=== PATIENT | female | born 1980 | race Caucasian/White ===

== ENCOUNTER 2017-06-12 09:43 | Observation (INO) | payer OTHER ==
[2017-06-12 09:43] VITALS: BMI 32.4
[2017-06-12 10:26] VITALS: RESP 18
--- NOTE | 2017-06-12 10:43 | C.PDOC ---
History Of Present Illness 37 y/o female with PSHx presents to ED with complaints of worsening RUQ and Epigastric pain for 1 month. As per patient symptoms are associated with eating, craming and burning. Patient also reports nausea and vomiting but denies fever. No other complaints at this time. WORSENING RUQ/EPIG PAIN X 1 MO. ASSOC W EATING. CRAMPING, BURNING. +NV. NO FEVER. PSH CSECT EXAM MILD DIST NONTOXIC HEENT ANICTERIC MMM ABD +RUQ>EPIG TEND MOD SOFT NO R/G REMAINDER NEG Time Seen by Provider: 06/12/17 10:28 Chief Complaint (Nursing): Abdominal Pain History Per: Patient History/Exam Limitations: no limitations Onset/Duration Of Symptoms: Days Current Symptoms Are (Timing): Still Present Location Of Pain/Discomfort: RUQ, Epigastric Past Medical History Reviewed: Historical Data, Nursing Documentation, Vital Signs Vital Signs: Last Vital Signs Temp 98.2 F 06/12/17 10:22 Pulse 86 06/12/17 10:22 Resp 18 06/12/17 10:22 BP 114/73 06/12/17 10:22 Pulse Ox 99 06/12/17 13:55 - Medical History PMH: Hypothyroidism Surgical History: No Surg Hx Family History: States: No Known Family Hx - Social History Hx Tobacco Use: No Hx Alcohol Use: No Hx Substance Use: No - Immunization History Hx Tetanus Toxoid Vaccination: No Hx Influenza Vaccination: Yes Hx Pneumococcal Vaccination: No Review Of Systems Except As Marked, All Systems Reviewed And Found Negative. Constitutional: Negative for: Fever, Chills Gastrointestinal: Positive for: Nausea, Vomiting, Abdominal Pain. Negative for : Diarrhea, Hematochezia Musculoskeletal: Negative for: Back Pain Skin: Negative for: Rash Physical Exam - Physical Exam Appears: Non-toxic, Other (mild distress) Skin: Normal Color, Warm, Dry, No Rash Head: Atraumatic, Normacephalic Eye(s): bilateral: Other (Anicteric ) Oral Mucosa: Moist Neck: Normal ROM, Supple Chest: Symmetrical Cardiovascular: Rhythm Regular, No Murmur Respiratory: Normal Breath Sounds, No Rales, No Rhonchi, No Wheezing Gastrointestinal/Abdominal: Soft, Tenderness (Moderate RUQ>Epigastric), No Guarding, No Rebound Back: No CVA Tenderness, No Paraspinal Tenderness Extremity: Normal ROM, Capillary Refill (<2 seconds) Neurological/Psych: Oriented x3 ED Course And Treatment - Laboratory Results Result Diagrams: 06/12/17 11:11 06/12/17 11:11 Urine POC: Negative O2 Sat by Pulse Oximetry: 99 (RA) Pulse Ox Interpretation: Normal Progress - Data Reviewed Data Reviewed: Lab, Diagnostic imaging, Old records ED OBSERVATION Discharge: Yes Date of observation admission: 06/12/17 Time of observation admission: 10:30 - Observation admission statement Patient is being placed in observation because:: ABD PAIN, NV - Goals of Observation Goals of observation are:: NEG ACUTE ABD - Progress Note Progress Note: 06/12/17 12:16 NEG ABD US 06/12/17 13:55 co recur pain. pending ct 06/12/17 15:03 CT NO ACUTE FINDINGS. ABD SOFT NT ND NO R/G ADVISED NEED FOR GI /PMD FU. Disposition Counseled Patient/Family Regarding: Studies Performed, Diagnosis, Need For Followup, Rx Given - Disposition Disposition: HOME/ ROUTINE Disposition Time: 15:03 Condition: IMPROVED - Clinical Impression Clinical Impression: Colicky RUQ abdominal pain - Scribe Statement The provider has reviewed the documentation as recorded by the Jeremieibjade Monteiro All medical record entries made by the Jeremieibjade were at my direction and personally dictated by me. I have reviewed the chart and agree that the record accurately reflects my personal performance of the history, physical exam, medical decision making, and the department course for this patient. I have also personally directed, reviewed, and agree with the discharge instructions and disposition.
[2017-06-12] MEDS ORDERED: Sodium Chloride 0.9% 1,000 ML IV ONE (10:46)
[2017-06-12] MEDS ORDERED: Sodium Chloride 0.9% 1,000 ML ONE (10:58)
[2017-06-12 11:16] LABS: BASO # 0.1 K/uL (0.0-0.2); BASO % 0.5 % (0.0-2.0); EOS # 0.3 K/uL (0.0-0.7); EOS % 2.7 % (0.0-4.0); HEMATOCRIT 36.3 % (34.0-47.0); LYMPH # 2.3 K/uL (1.0-4.3); LYMPH % 19.3 % (20.0-40.0); MEAN CELL VOLUME 77.2 fL (81.0-99.0); MEAN CORPUSCULAR HGB CONC 32.4 g/dL (33.0-37.0); MEAN PLATELET VOLUME 8.1 fL (7.2-11.7); MONO # 0.6 K/uL (0.0-0.8); MONO % 4.9 % (0.0-10.0); NRBC % 0.1 % (0.0-2.0); RED CELL DISTRIBUTION WIDTH 15.4 % (11.5-14.5); WHITE BLOOD COUNT 11.7 K/uL (4.8-10.8)
[2017-06-12 11:24] LABS: CHLORIDE 102 mmol/L (98-107); SODIUM 139 mmol/L (132-148)
[2017-06-12 11:25] LABS: POTASSIUM 4.1 mmol/L (3.6-5.2)
[2017-06-12 11:27] LABS: ALB/GLOB RATIO 1.2 (1.0-2.1); ALKALINE PHOSPHATASE 64 U/L (38-126); ALT/SGPT 38 U/L (9-52); AST/SGOT 20 U/L (14-36); BILIRUBIN,TOTAL 0.6 mg/dL (0.2-1.3); BLOOD UREA NITROGEN 18 mg/dL (7-17); CARBON DIOXIDE 27 mmol/L (22-30); GFR AFRICAN-AMERICAN > 60; GLUCOSE,RANDOM 106 mg/dL (65-105); TOTAL PROTEIN 7.3 g/dL (6.3-8.3)
[2017-06-12 11:28] LABS: RBC URINE 153 /hpf (0-3); URINE BACTERIA RARE (<OCC); URINE BILIRUBIN NEGATIVE (NEGATIVE); URINE BLOOD 3+ (NEGATIVE); URINE COLOR Yellow (YELLOW); URINE GLUCOSE (UA) NORMAL (Normal); URINE KETONE NEGATIVE (NEGATIVE); URINE LEUKOCYTE ESTERASE NEG Leu/uL (Negative); URINE PROTEIN NEGATIVE (NEGATIVE); URINE UROBILINOGEN NORMAL mg/dL (0.2-1.0); WBC URINE 2 /hpf (0-5)
[2017-06-12 11:28] LABS: CALCIUM 8.5 mg/dl (8.6-10.4)
--- NOTE | 2017-06-12 12:11 | US ---
HISTORY: abd pain RUQ RO ACUTE DOMINIK COMPARISON: Abdominal ultrasound performed 09/25/14 TECHNIQUE: Sonographic evaluation of the right upper quadrant of the abdomen. FINDINGS: LIVER: Measures 15.9 cm in length. Echogenic liver may be seen in setting of hepatic parenchymal disease or fatty infiltration. No focal hepatic mass identified. Main portal vein appears patent with normal directional flow. No intrahepatic bile duct dilatation. GALLBLADDER: No gallstones. No gallbladder wall thickening or pericholecystic edema. Negative sonographic Miranda's sign as assessed by the sales correspondent. COMMON BILE DUCT: Measures 3 mm. PANCREAS: Not well-visualized. RIGHT KIDNEY: Measures 11.7 x 4.9 x 4.3 cm. No obstructing calculus or hydronephrosis identified. AORTA: Limited visualization appears grossly unremarkable. IVC: Limited visualization appears grossly unremarkable. OTHER FINDINGS: None . IMPRESSION: Echogenic liver may be seen in setting of hepatic parenchymal disease or fatty infiltration.
[2017-06-12] MEDS ORDERED: Iodixanol 320 MG/ML 100 ML BOTTLE IV ONE (13:55)
--- NOTE | 2017-06-12 14:59 | CT ---
PROCEDURE: CT Abdomen and Pelvis with contrast HISTORY: RUQ ABD PAIN, NV COMPARISON: Comparison is made to the previous ultrasound dated 09/25/2014 TECHNIQUE: Contrast dose: 100 mL Visipaque 320. Axial and reformatted coronal and sagittal CT images of the abdomen and pelvis were obtained after IV contrast administration. Radiation dose: Total exam DLP = 676.12 mGy-cm. This CT exam was performed using one or more of the following dose reduction techniques: Automated exposure control, adjustment of the mA and/or kV according to patient size, and/or use of iterative reconstruction technique. FINDINGS: LOWER THORAX: No evidence of acute pathology at the lung bases. LIVER: No evidence of acute pathology or suspicious mass in the liver. The portal vein is patent. GALLBLADDER AND BILE DUCTS: Mild gallbladder wall thickening is noted. No CT evidence of acute cholecystitis. No evidence of biliary obstruction. PANCREAS: Unremarkable. No gross lesion or ductal dilatation. SPLEEN: Unremarkable. ADRENALS: Unremarkable. No mass. KIDNEYS AND URETERS: Unremarkable. No hydronephrosis. No solid mass. VASCULATURE: Unremarkable. No aortic aneurysm. BOWEL: Unremarkable. No obstruction. No gross mural thickening. APPENDIX: There is no evidence of appendicitis. PERITONEUM: Unremarkable. No free fluid. No free air. LYMPH NODES: Unremarkable. No enlarged lymph nodes. BLADDER: The bladder is not distended. The possibility of bladder wall thickening is not totally excluded. REPRODUCTIVE: The uterus is heterogeneous mildly enlarged. BONES: No acute fracture. OTHER FINDINGS: None. IMPRESSION: Mild gallbladder wall thickening. No CT evidence of acute cholecystitis. No evidence of biliary obstruction. No evidence of appendicitis.
[2017-06-12 15:19] VITALS: BP 99/61; PULSE 74; TEMP 98; O2SAT 100
== END 2017-06-12 15:04 | disposition home or self-care (01) ==
LOC: C.ER 09:43 → C.9OBSV 10:30
PROVIDERS: ADMIT Emergency Medicine; ATTEND Emergency Medicine
DX: R10.11 Right upper quadrant pain (principal); E03.9 Hypothyroidism, unspecified
CPT/HCPCS: 74177; 76705; 80053; 81001; 83690; 85025; 96361; 96374; 96375; 96376; 99284; C9113; G0378; J2270; J2405; J7040; Q9967

== ENCOUNTER 2018-03-22 09:35 | Emergency (ER) | payer MEDICAID, OTHER ==
[2018-03-22 09:35] VITALS: BMI 32.4
[2018-03-22 09:45] VITALS: O2SAT 100
[2018-03-22] MEDS ORDERED: Sodium Chloride 0.9% 1,000 ML IV ONE (10:03)
--- NOTE | 2018-03-22 10:10 | C.PDOC ---
History Of Present Illness 38 yo female w/o significant PMHx come in for evaluation of diffuse lower abdominal discomfort for past 3 weeks. Pt reports, " discomfort comes and goes, worse for past 2 days radiating to back". Otherwise, pt denies fever, chills, recent illness, sore throat, neck pain, CP, SOB, dyspnea, diaphoresis, palpitation, N/V/D, UTI sx, vaginal irritation or discharges. LNMP 02/06/18 .Ambulate to ED for evaluation, not in any apparent distress. Time Seen by Provider: 03/22/18 09:48 Chief Complaint (Nursing): Abdominal Pain History Per: Patient Past Medical History Reviewed: Historical Data, Nursing Documentation, Vital Signs Vital Signs: Last Vital Signs Temp 98 F 03/22/18 09:42 Pulse 80 03/22/18 09:42 Resp 18 03/22/18 09:42 BP 128/85 03/22/18 09:42 Pulse Ox 100 03/22/18 11:48 - Medical History PMH: Hypothyroidism Family History: States: No Known Family Hx - Social History Hx Tobacco Use: No Hx Alcohol Use: No Hx Substance Use: No - Immunization History Hx Tetanus Toxoid Vaccination: No Hx Influenza Vaccination: Yes Hx Pneumococcal Vaccination: No Review Of Systems Except As Marked, All Systems Reviewed And Found Negative. Constitutional: Negative for: Fever, Chills ENT: Negative for: Throat Pain, Throat Swelling Cardiovascular: Negative for: Chest Pain, Palpitations Respiratory: Negative for: Cough, Shortness of Breath, Wheezing Gastrointestinal: Positive for: Nausea, Abdominal Pain. Negative for: Vomiting , Diarrhea, Melena, Hematochezia, Hematemesis Genitourinary: Negative for: Dysuria, Frequency, Incontinence, Vaginal Discharge , Vaginal Bleeding Musculoskeletal: Positive for: Back Pain Skin: Negative for: Rash Neurological: Negative for: Weakness, Numbness, Altered Mental Status, Headache , Dizziness Physical Exam - Physical Exam Appears: Well, Non-toxic, No Acute Distress Skin: Normal Color, Warm, Dry, No Rash Head: Normacephalic Eye(s): bilateral: PERRL Nose: No Flaring, No Discharge Oral Mucosa: Moist, No Drooling Throat: No Erythema, No Exudate, No Drooling Neck: Trachea Midline, Supple Cardiovascular: Rhythm Regular Respiratory: No Decreased Breath Sounds, No Accessory Muscle Use, No Stridor, No Wheezing Gastrointestinal/Abdominal: Soft, Tenderness (diffuse lower abdominal tenderness , more over suprapubic area.), No Distention, No Guarding, No Rebound Back: No CVA Tenderness Extremity: Normal ROM, No Deformity, No Swelling Neurological/Psych: Oriented x3, Normal Speech ED Course And Treatment - Laboratory Results Result Diagrams: 03/22/18 10:27 03/22/18 10:27 Lab Interpretation: Normal Urine POC: Negative O2 Sat by Pulse Oximetry: 100 Pulse Ox Interpretation: Normal - CT Scan/US CT abd/pelvis Other Rad Studies (CT/US): Radiology Report Reviewed CT/US Interpretation: Report Date : 03/22/2018 13:58:31. My Comment : . This report is currently processing and HAS NOT BEEN OFFICIALLY SIGNED BY THE PHYSICIAN - ESTIMATED TIME OF APPROVAL IS 03/22/2018 14:04. PROCEDURE: CT abdomen pelvis dated 03/22/2018. HISTORY: Right lower quadrant pain. COMPARISON: None. TECHNIQUE: Contiguous helical/transaxial images of the abdomen and pelvis. Oral contrast was administered. No IV contrast given. Coronal and Sagittal reformats generated. Radiation dose: Total exam DLP = 490.98 mGy-cm. This CT exam was performed using one or more of the following dose reduction techniques: Automated exposure control, adjustment of the mA and/ or kV according to patient size, and/or use of iterative reconstruction technique. The the. FINDINGS: LOWER THORAX: Mild passive/ dependent type atelectasis both posterior lower lung zones. LIVER: Unremarkable. No gross lesion or ductal dilatation. . No obvious hepatic masses or collections seen. No gross intrahepatic biliary ductal dilatation. GALLBLADDER AND BILE DUCTS: Unremarkable. PANCREAS: Unremarkable. No mass. No ductal dilatation. SPLEEN: Unremarkable. No splenomegaly. ADRENALS: Unremarkable. KIDNEYS AND URETERS : Unremarkable. No stone or hydronephrosis. BLADDER: Urinary bladder incompletely distended which presumably accounts for thick-walled appearance. Possibility of a cystitis not excluded. REPRODUCTIVE: Right-sided adnexal cyst measuring approximately 3.5 x 3.5 cm. APPENDIX: Normal appendix. BOWEL: Unremarkable. No obstruction. No gross mural thickening. PERITONEUM: Unremarkable. No fluid collection. No free air. Small fat containing umbilical hernia. LYMPH NODES: Unremarkable. No enlarged lymph nodes. VASCULATURE: Unremarkable. No aortic aneurysm. BONES: No fracture or destructive lesion. OTHER FINDINGS: None. IMPRESSION: Right adnexal cyst as described. No evidence of acute appendicitis. Urinary bladder incompletely distended which in part accounts for thick-walled appearance. Correlation with urinalysis to exclude cystitis. Progress Note: Pt was OBS in ED for 4 hours and reports moderate improveent in sx. On re-eavluation.pt is afberile, hemodynamicalys table. NOn-toxic, tolerate PO well in ED. ENT: No acute findings. neck: SUpple. Lungs: CTA B/L , BS equal B/L. Abd: benign, (-) guarding, (-) rebound, (-) localized tenderness. Back: (-) CVA tenderness. Blood work, UA review, no acute abnormalities. Preg (-). CT abd/pelvis r/o RLQ pain review- no evidence of acute appendicitis, Right ovarian cyst, nos. Results review and discussed with pt. Pt advised, ref., to F/u with PMD, EMPLOYMENT DIRECTOR in 2-3 days for re-eval. return to ED if any worsening or new changes. Disposition Counseled Patient/Family Regarding: Studies Performed, Diagnosis, Need For Followup, Rx Given - Disposition Referrals: [facility] [Outside] Disposition: HOME/ ROUTINE Disposition Time: 14:00 Condition: STABLE Additional Instructions: Take medication as prescribed Follow up with EMPLOYMENT DIRECTOR In 2-3 days for re-evaluation. return to ED if any worsening or new changes. Prescriptions: traMADol [Ultram] 50 mg PO TID #7 tab Instructions: Ovarian Cysts Forms: [employer] (Welsh) Print Language: PALESTINIAN - Clinical Impression Clinical Impression: Ovarian cyst
[2018-03-22] MEDS ORDERED: Sodium Chloride 0.9% 1,000 ML ONE (10:14)
[2018-03-22 10:24] LABS: SQUAMOUS EPITHIAL 12 /hpf (0-5); URINE BACTERIA RARE (<OCC); URINE BILIRUBIN NEGATIVE (NEGATIVE); URINE BLOOD NEGATIVE (NEGATIVE); URINE CLARITY Hazy (Clear); URINE COLOR Yellow (YELLOW); URINE GLUCOSE (UA) NORMAL (Normal); URINE LEUKOCYTE ESTERASE NEG Leu/uL (Negative); URINE PROTEIN NEGATIVE (NEGATIVE); URINE UROBILINOGEN NORMAL mg/dL (0.2-1.0)
[2018-03-22 10:25] LABS: HCG,QUALITATIVE URINE NEGATIVE (NEGATIVE)
[2018-03-22 10:30] LABS: BASO % 0.6 % (0.0-2.0); EOS # 0.3 K/uL (0.0-0.7); EOS % 4.4 % (0.0-4.0); HEMOGLOBIN 11.1 g/dL (11.0-16.0); NEUT # 3.9 K/uL (1.8-7.0)
[2018-03-22 10:32] LABS: LYMPH # 1.9 K/uL (1.0-4.3); LYMPH % 29.8 % (20.0-40.0); MEAN CELL VOLUME 75.4 fL (81.0-99.0); MEAN CORPUSCULAR HEMOGLOBIN 24.8 pg (27.0-31.0); MEAN CORPUSCULAR HGB CONC 32.9 g/dL (33.0-37.0); MONO # 0.3 K/uL (0.0-0.8); MONO % 5.3 % (0.0-10.0); NEUT % 59.9 % (50.0-75.0); NRBC % 0.1 % (0.0-2.0); RBC 4.46 Mil/uL (3.80-5.20); WHITE BLOOD COUNT 6.5 K/uL (4.8-10.8)
[2018-03-22 10:46] LABS: BLOOD UREA NITROGEN 18 mg/dL (7-17); CALCIUM 8.6 mg/dl (8.6-10.4); GFR AFRICAN-AMERICAN > 60; GFR NON-AFRICAN AMERICAN > 60
[2018-03-22] MEDS ORDERED: Iodixanol 320 MG/ML 100 ML BOTTLE IV ONE (12:06)
--- NOTE | 2018-03-22 14:00 | CT ---
PROCEDURE: CT abdomen pelvis dated 03/22/2018 HISTORY: Right lower quadrant pain COMPARISON: None. TECHNIQUE: Contiguous helical/transaxial images of the abdomen and pelvis. Oral contrast was administered. No IV contrast given. Coronal and Sagittal reformats generated. Radiation dose: Total exam DLP = 490.98 mGy-cm. This CT exam was performed using one or more of the following dose reduction techniques: Automated exposure control, adjustment of the mA and/or kV according to patient size, and/or use of iterative reconstruction technique. The the FINDINGS: LOWER THORAX: Mild passive/ dependent type atelectasis both posterior lower lung zones. LIVER: Unremarkable. No gross lesion or ductal dilatation. . No obvious hepatic masses or collections seen. No gross intrahepatic biliary ductal dilatation. GALLBLADDER AND BILE DUCTS: Unremarkable. PANCREAS: Unremarkable. No mass. No ductal dilatation. SPLEEN: Unremarkable. No splenomegaly. ADRENALS: Unremarkable. KIDNEYS AND URETERS: Unremarkable. No stone or hydronephrosis. BLADDER: Urinary bladder incompletely distended which presumably accounts for thick-walled appearance. Possibility of a cystitis not excluded. REPRODUCTIVE: Right-sided adnexal cyst measuring approximately 3.5 x 3.5 cm. APPENDIX: Normal appendix. BOWEL: Unremarkable. No obstruction. No gross mural thickening. PERITONEUM: Unremarkable. No fluid collection. No free air. Small fat containing umbilical hernia. LYMPH NODES: Unremarkable. No enlarged lymph nodes. VASCULATURE: Unremarkable. No aortic aneurysm. BONES: No fracture or destructive lesion. OTHER FINDINGS: None. IMPRESSION: Right adnexal cyst as described. No evidence of acute appendicitis. Urinary bladder incompletely distended which in part accounts for thick-walled appearance. Correlation with urinalysis to exclude cystitis.
[2018-03-22 14:16] VITALS: BP 118/75; PULSE 79; RESP 20; TEMP 98.3
== END 2018-03-22 14:16 | disposition home or self-care (01) ==
LOC: C.ER 09:35
DX: N83.201 Unspecified ovarian cyst, right side (principal); E03.9 Hypothyroidism, unspecified
CPT/HCPCS: 74177; 80048; 81001; 84703; 85025; 96360; 96374; 99285; J1885; J7030; Q9967

== ENCOUNTER 2018-10-02 21:13 | Emergency (ER) | payer MEDICAID, OTHER ==
[2018-10-02 21:13] VITALS: BMI 32.4
[2018-10-02 21:53] VITALS: BP 126/81; PULSE 79; RESP 20; TEMP 97.6; O2SAT 98
[2018-10-02 23:00] LABS: BASO % 0.4 % (0.0-2.0); EOS # 0.5 K/uL (0.0-0.7); EOS % 6.4 % (0.0-4.0); HEMOGLOBIN 12.3 g/dL (11.0-16.0); LYMPH # 2.4 K/uL (1.0-4.3); LYMPH % 28.4 % (20.0-40.0); MEAN CELL VOLUME 81.8 fL (81.0-99.0); MEAN CORPUSCULAR HEMOGLOBIN 27.3 pg (27.0-31.0); MEAN CORPUSCULAR HGB CONC 33.4 g/dL (33.0-37.0); MEAN PLATELET VOLUME 8.4 fL (7.2-11.7); MONO # 0.7 K/uL (0.0-0.8); MONO % 7.6 % (0.0-10.0); NEUT # 4.9 K/uL (1.8-7.0); NEUT % 57.2 % (50.0-75.0); RBC 4.5 Mil/uL (3.80-5.20); WHITE BLOOD COUNT 8.6 K/uL (4.8-10.8)
[2018-10-02 23:05] LABS: SQUAMOUS EPITHIAL 6 /hpf (0-5); URINE BACTERIA RARE (<OCC); URINE BILIRUBIN NEGATIVE (NEGATIVE); URINE BLOOD NEGATIVE (NEGATIVE); URINE CLARITY Clear (Clear); URINE COLOR Yellow (YELLOW); URINE GLUCOSE (UA) NORMAL (Normal); URINE LEUKOCYTE ESTERASE NEG Leu/uL (Negative); URINE PROTEIN NEGATIVE (NEGATIVE); URINE UROBILINOGEN NORMAL mg/dL (0.2-1.0)
[2018-10-02 23:14] LABS: ALB/GLOB RATIO 1.4 (1.0-2.1); ALBUMIN 4.2 g/dL (3.5-5.0); ALT/SGPT 35 U/L (9-52); AST/SGOT 22 U/L (14-36); BLOOD UREA NITROGEN 18 mg/dL (7-17); GFR NON-AFRICAN AMERICAN > 60; LIPASE 133 U/L (23-300)
--- NOTE | 2018-10-02 23:44 | C.PDOC ---
History Of Present Illness 38 year old female presents to the ER with a complaint of epigastric pain and RUQ pain for the past 3 months. Patient states she also has a hernia below the location of the pain that moves in and out and has been bother in her for the past few months. Patient has not been evaluated in the past for these symptoms. Denies vomiting, diarrhea, fever, or pain at this time. Chief Complaint (Nursing): Abdominal Pain History Per: Patient History/Exam Limitations: no limitations Onset/Duration Of Symptoms: Days Current Symptoms Are (Timing): Gone Location Of Pain/Discomfort: RUQ, Epigastric Radiation Of Pain To:: None Quality Of Discomfort: Unable To Describe Associated Symptoms: denies: Fever, Vomiting, Diarrhea Exacerbating Factors: None Alleviating Factors: None Recent travel outside of the [place]: No Past Medical History Reviewed: Historical Data, Nursing Documentation, Vital Signs Vital Signs: Last Vital Signs Temp 97.6 F 10/02/18 21:47 Pulse 79 10/02/18 21:47 Resp 20 10/02/18 21:47 BP 126/81 10/02/18 21:47 Pulse Ox 98 10/02/18 21:47 - Medical History PMH: Hypothyroidism Family History: States: Unknown Family Hx - Social History Hx Tobacco Use: No Hx Alcohol Use: No Hx Substance Use: No - Immunization History Hx Tetanus Toxoid Vaccination: No Hx Influenza Vaccination: Yes Hx Pneumococcal Vaccination: No Review Of Systems Constitutional: Negative for: Fever, Chills Eyes: Negative for: Pain, Redness ENT: Negative for: Mouth Swelling Cardiovascular: Negative for: Chest Pain Respiratory: Negative for: Cough, Shortness of Breath Gastrointestinal: Positive for: Abdominal Pain, Other (Hernia). Negative for: Nausea, Vomiting, Diarrhea Genitourinary: Negative for: Dysuria, Hematuria Musculoskeletal: Negative for: Back Pain Skin: Negative for: Rash Neurological: Negative for: Weakness, Numbness, Dizziness Physical Exam - Physical Exam Appears: Well, Non-toxic, No Acute Distress Skin: Normal Color, Warm, No Rash Head: Atraumatic, Normacephalic Eye(s): bilateral: Normal Inspection, PERRL, EOMI Oral Mucosa: Moist Throat: Normal (No swelling or injection) Neck: Normal ROM, Supple Chest: Symmetrical Cardiovascular: Rhythm Regular Respiratory: No Accessory Muscle Use, Other (Normal inspiratory effort) Gastrointestinal/Abdominal: Soft, No Tenderness, No Distention, Hernia (Easily reducible ventral hernia) Back: No CVA Tenderness Neurological/Psych: Oriented x3, Normal Speech, Normal Cranial Nerves (Grossly i ntact) Gait: Steady ED Course And Treatment - Laboratory Results Result Diagrams: 10/02/18 22:47 10/02/18 22:47 Lab Results: Total Bilirubin 0.3 mg/dL (0.2-1.3) 10/02/18 22:47 AST 22 U/L (14-36) 10/02/18 22:47 ALT 35 U/L (9-52) 10/02/18 22:47 Alkaline Phosphatase 65 U/L (38-126) 10/02/18 22:47 Total Protein 7.3 g/dL (6.3-8.3) 10/02/18 22:47 Albumin 4.2 g/dL (3.5-5.0) 10/02/18 22:47 Globulin 3.1 gm/dL (2.2-3.9) 10/02/18 22:47 Albumin/Globulin Ratio 1.4 (1.0-2.1) 10/02/18 22:47 Lipase 133 U/L (23-300) 10/02/18 22:47 Urine Color Yellow (YELLOW) 10/02/18 22:47 Urine Clarity Clear (Clear) 10/02/18 22:47 Urine pH 7.0 (5.0-8.0) 10/02/18 22:47 Ur Specific [place] 1.017 (1.003-1.030) 10/02/18 22:47 Urine Protein Negative mg/dL (NEGATIVE) 10/02/18 22:47 Urine Glucose (UA) Normal mg/dL (Normal) 10/02/18 22:47 Urine Ketones Negative mg/dL (NEGATIVE) 10/02/18 22:47 Urine Blood Negative (NEGATIVE) 10/02/18 22:47 Urine Nitrate Negative (NEGATIVE) 10/02/18 22:47 Urine Bilirubin Negative (NEGATIVE) 10/02/18 22:47 Urine Urobilinogen Normal mg/dL (0.2-1.0) 10/02/18 22:47 Ur Leukocyte Esterase Neg [place]/uL (Negative) 10/02/18 22:47 Urine WBC (Auto) 1 /hpf (0-5) 10/02/18 22:47 Urine RBC (Auto) < 1 /hpf (0-3) 10/02/18 22:47 Ur Squamous Epith Cells 6 /hpf (0-5) H 10/02/18 22:47 Urine Bacteria Rare (<OCC) 10/02/18 22:47 O2 Sat by Pulse Oximetry: 98 (Room air) Pulse Ox Interpretation: Normal Medical Decision Making Medical Decision Making: Blood work and urinalysis ordered. She does not appear to have an acute process at this time considering the 3 month history and normal labs. she will be referred to outpatient follow up. Disposition Counseled Patient/Family Regarding: Studies Performed, Diagnosis, Need For Followup - Disposition Referrals: Shad Capellan MD [Staff Provider] - Disposition: HOME/ ROUTINE Disposition Time: 23:43 Condition: STABLE Instructions: Abdominal Hernia (DC) Forms: [employer] (Slovenian), General Discharge Instructions Print Language: BAHAMIAN - Clinical Impression Clinical Impression: Hernia of anterior abdominal wall - PA / HUMAN RESOURCES TRAINEE / Resident Statement MD/DO has reviewed & agrees with the documentation as recorded. - Scribe Statement The provider has reviewed the documentation as recorded by the Scribe Oracio Ramirez All medical record entries made by the Scribe were at my direction and personally dictated by me. I have reviewed the chart and agree that the record accurately reflects my personal performance of the history, physical exam, medical decision making, and the department course for this patient. I have also personally directed, reviewed, and agree with the discharge instructions and disposition.
--- NOTE | 2018-10-02 23:44 | C.PDOC ---
Chief Complaint (Nursing): Abdominal Pain Past Medical History Vital Signs: Last Vital Signs Temp 97.6 F 10/02/18 21:47 Pulse 79 10/02/18 21:47 Resp 20 10/02/18 21:47 BP 126/81 10/02/18 21:47 Pulse Ox 98 10/02/18 21:47 - Medical History PMH: Hypothyroidism - Social History Hx Tobacco Use: No Hx Alcohol Use: No Hx Substance Use: No - Immunization History Hx Tetanus Toxoid Vaccination: No Hx Influenza Vaccination: Yes Hx Pneumococcal Vaccination: No ED Course And Treatment - Laboratory Results Result Diagrams: 10/02/18 22:47 10/02/18 22:47 Lab Results: Total Bilirubin 0.3 mg/dL (0.2-1.3) 10/02/18 22:47 AST 22 U/L (14-36) 10/02/18 22:47 ALT 35 U/L (9-52) 10/02/18 22:47 Alkaline Phosphatase 65 U/L (38-126) 10/02/18 22:47 Total Protein 7.3 g/dL (6.3-8.3) 10/02/18 22:47 Albumin 4.2 g/dL (3.5-5.0) 10/02/18 22:47 Globulin 3.1 gm/dL (2.2-3.9) 10/02/18 22:47 Albumin/Globulin Ratio 1.4 (1.0-2.1) 10/02/18 22:47 Lipase 133 U/L (23-300) 10/02/18 22:47 Urine Color Yellow (YELLOW) 10/02/18 22:47 Urine Clarity Clear (Clear) 10/02/18 22:47 Urine pH 7.0 (5.0-8.0) 10/02/18 22:47 Ur Specific [place] 1.017 (1.003-1.030) 10/02/18 22:47 Urine Protein Negative mg/dL (NEGATIVE) 10/02/18 22:47 Urine Glucose (UA) Normal mg/dL (Normal) 10/02/18 22:47 Urine Ketones Negative mg/dL (NEGATIVE) 10/02/18 22:47 Urine Blood Negative (NEGATIVE) 10/02/18 22:47 Urine Nitrate Negative (NEGATIVE) 10/02/18 22:47 Urine Bilirubin Negative (NEGATIVE) 10/02/18 22:47 Urine Urobilinogen Normal mg/dL (0.2-1.0) 10/02/18 22:47 Ur Leukocyte Esterase Neg [place]/uL (Negative) 10/02/18 22:47 Urine WBC (Auto) 1 /hpf (0-5) 10/02/18 22:47 Urine RBC (Auto) < 1 /hpf (0-3) 10/02/18 22:47 Ur Squamous Epith Cells 6 /hpf (0-5) H 10/02/18 22:47 Urine Bacteria Rare (<OCC) 10/02/18 22:47 O2 Sat by Pulse Oximetry: 98 Disposition - Disposition Forms: [employer] ([place]an)
[2018-10-02] MEDS ORDERED: Aluminum Hydroxide/Magnesium Hydroxide Susp (30 mL) ONE (23:57)
[2018-10-02] MEDS ORDERED: Aluminum Hydroxide/Magnesium Hydroxide Susp (30 mL) PO STA (23:59)
== END 2018-10-03 00:04 | disposition home or self-care (01) ==
LOC: C.ER 21:13
DX: K43.9 Ventral hernia without obstruction or gangrene (principal)